=== PATIENT | male | born 1970 | race Caucasian/White ===

== ENCOUNTER 2024-05-16 09:16 | Inpatient (IN) | payer OTHER ==
[~2024-05-16] VITALS: Ht 175.3 cm; Wt 93.2 kg
--- NOTE | 2024-05-16 09:46 | ED.PDOC ---
History of Present Illness HPI Comments This 53-year-old male with a past medical history significant diabetes mellitus and hypertension presents to emergency room secondary to day history of word- finding difficulty and left-sided weakness. The mother she was last known well time was Friday evening. Today is Friday. He has no other complaints such as headaches convincing, chest pain, shortness of breath. The patient has difficulty finding worsening answer questions but not appropriately. He denies modifying factors. Denies pain. Fourteen systems reviewed and negative except as mentioned above Chief Complaint: Stroke Time Seen by MD: 09:44 Allergies: Coded Allergies: NO KNOWN ALLERGIES (Unverified , 05/16/24) Past Medical History PAST MEDICAL HISTORY: DM, HTN Surgical History: Denies all surgeries Constitutional: denies: chills, diaphoresis, fatigue, fever, malaise, sweats, weakness, others EENTM: denies: blurred vision, double vision, nose bleeding, nose congestion, nose pain, photophobia, tearing, throat pain, throat swelling, voice changes, others Cardiovascular: denies: chest pain, diaphoresis, Dyspnea on exertion, edema, palpitations, PND, syncope, others Gastrointestinal: denies: abdomen distended, abdominal pain, blood streaked bowels, constipated, diarrhea, dysphagia, hematemesis, melena, nausea, poor appetite, vomiting, others Genitourinary: denies: burning, dysuria, frequency Neurological: reports: left sided numbness, speech problems, weakness; denies: pre-existing deficit Musculoskeletal: denies: back pain, joint swelling, muscle pain, muscle stiffness Integumetry: denies: bruises, laceration, lesions, rash, wounds Psychiatric: denies: anxiety, depression Physical Exam General Appearance: Moderate Distress HEENT: Other (Left-sided facial weakness.) Neck: Full Range of Motion, Supple Respiratory: Lungs Clear, No Accessory Muscle Use, No Respiratory Distress Cardiovascular: Regular Rate/Rhythm Breast Exam: Deferred Gastrointestinal: Non Tender, Soft Genitalia: Deferred Pelvic: Deferred Rectal: Deferred Extremities: Normal inspection, Normal range of motion, Non-tender Neurologic: Aphasia, Facial Droop, Normal Affect, Normal Mood, Speech Problem Cerebellar Function: NOT DONE Reflexes: NOT DONE Skin: Normal Color, Warm Lymphatic: NOT DONE Was a procedure done? Was a procedure done?: No Differential Dx Considerations may include: CVA, TIA, wiggins's palsy X-Ray, Labs, Meds, VS Vital Signs Date Time Temp Pulse Resp B/P (MAP) Pulse Ox O2 Delivery O2 Flow Rate FiO2 05/16/24 10:58 59 05/16/24 09:16 98.5 85 17 183/96 (125) 96 Lab Test 05/16/24 11:19 05/16/24 10:15 Range/Units Troponin I High Sensitivity < 3 L < 3 L </=54 ng/L White Blood Count 9.5 4.4-10.8 10^3/uL Red Blood Count 5.54 4.5-5.90 10^6/uL Hemoglobin 17.4 13.5-17.5 g/dL Hematocrit 50.6 41.0-53.0 % Mean Corpuscular Volume 91.3 80.0-100.0 fL Mean Corpuscular Hemoglobin 31.3 28.0-32.0 pg Mean Corpuscular Hemoglobin Concent 34.3 32.0-36.0 g/dL Red Cell Distribution Width 13.9 11.8-14.3 % Platelet Count 211 140-450 10^3/uL Mean Platelet Volume 7.5 6.9-10.8 fL Neutrophils (%) (Auto) 70.1 37.0-80.0 % Lymphocytes (%) (Auto) 21.9 10.0-50.0 % Monocytes (%) (Auto) 6.9 0.0-12.0 % Eosinophils (%) (Auto) 0.5 0.0-7.0 % Basophils (%) (Auto) 0.6 0.0-2.0 % Neutrophils # (Auto) 6.6 1.6-8.6 10 ^3/uL Lymphocytes # (Auto) 2.1 0.4-5.4 10 ^3/uL Monocytes # (Auto) 0.6 0-1.3 10 ^3/uL Eosinophils # (Auto) 0.1 0-0.8 10 ^3/uL Basophils # (Auto) 0.1 0-0.2 10 ^3/uL Nucleated Red Blood Cells 0.1 % Prothrombin Time 11.0 9.3-11.8 sec Prothrombin Time INR 1.04 0.9-1.15 Activated Partial Thromboplast Time 28.6 24.5-34.5 SEC Sodium Level 143 136-145 mmol/L Potassium Level 3.1 L 3.5-5.1 mmol/L Chloride Level 105 98-107 mmol/L Carbon Dioxide Level 28 20-31 mmol/L Anion Gap 10 5-15 Blood Urea Nitrogen 16 9-23 mg/dL Creatinine 0.94 0.700-1.30 mg/dL Glomerular Filtration Rate Calc 96 >90 mL/min BUN/Creatinine Ratio 17.0 10.0-20.0 Serum Glucose 172 H 74-106 mg/dL Calcium Level 9.7 8.7-10.4 mg/dL Magnesium Level 2.2 1.6-2.6 mg/dL Total Bilirubin 0.8 0.2-1.0 mg/dL Aspartate Amino Transferase (AST) 13 13-40 U/L Alanine Aminotransferase (ALT) 18 7-40 U/L Alkaline Phosphatase 96 46-116 U/L B-Type Natriuretic Peptide 16.46 0-100 pg/mL Total Protein 7.1 5.7-8.2 g/dL Albumin 4.4 3.2-4.8 g/dL [place] [id number] Ph: [phone] DIAGNOSTIC IMAGING Diagnostic Imaging Report : [id number] Signed PATIENT: BOSSMAN RM ACCT: [id number] UNIT: [id number] : 1970 LOC: ER ROOM / BED: / AGE / SEX: 53 / M ADM STATUS: REG ER SERVICE [id number] ORDERING PHYSICIAN: GIGI MICHELE MD PROCEDURE(s): CTH - STROKE CTH REASON: r/o stroke ORDER NUMBER(s): [id number], ACCESSION NUMBER(s): [id number] CT STROKE CTH INDICATION: r/o stroke EXAM DATE: 05/16/2024 09:43 AM COMPARISON: None RADIATION DOSE: CTDIvol: 56.1 mGy, DLP: 899.37 mGy*cm PROCEDURE: CT scans of the head were obtained from the vertex to the skull base. Sagittal and coronal reconstructions were provided. All CT scans at this medical facility are performed using dose modulation techniques as appropriate to a performed exam including the following: Automated exposure control was utilized; adjustment of the MA and/or KV according to patient size; and use of iterative reconstruction technique. FINDINGS: Hypodensity in the left frontal, parietal and right parietal lobe. There is sulcal and ventricular prominence. The brain otherwise shows normal morphology and rosas-white matter differentiation, without intracranial hemorrhage, extra-axial fluid collection, mass effect or acute large vessel infarct. The ventricles are normal in size. The basal cisterns are patent. The skull and visible facial bones are intact. The paranasal sinuses, mastoid air cells and middle ear cavities are well-aerated. The soft tissues of the scalp are unremarkable. IMPRESSION: Hypodensity in the left frontal, parietal and right parietal lobe likely due to prior infarct. Brain MRI may be considered for further evaluation. No acute intracranial abnormality. ATED BY: JAY DENNIS MD DICTATED DATE/TIME: 05/16/241002 SIGNED BY: JAY DENNIS MD SIGNED DATE/TIME: 05/16/241002 CC: [place] [address] Ph: [phone] DIAGNOSTIC IMAGING Diagnostic Imaging Report : [id number] Signed PATIENT: BOSSMAN RM ACCT: [id number] UNIT: [id number] : 1970 LOC: ER ROOM / BED: / AGE / SEX: 53 / M ADM STATUS: REG ER SERVICE 8 ORDERING PHYSICIAN: GIGI MICHEEL MD PROCEDURE(s): CXR1 - CHEST XRAY 1 VIEW REASON: stroke ORDER NUMBER(s): [id number], ACCESSION NUMBER(s): [id number] XY CHEST XRAY 1 VIEW, HISTORY: stroke COMPARISON: None None TECHNICAL DATA: 1 view of the chest was obtained. FINDINGS: Lines and tubes: None Cardiomediastinal silhouette: normal Pulmonary vasculature: normal Lung expansion: normal Lung airspace: normal Lung interstitium: normal Pleura: normal Pneumothorax: no Bones: Unremarkable Other: no IMPRESSION: No acute intrathoracic abnormality. ATED BY: JAY DENNIS MD DICTATED DATE/TIME: 05/16/241007 SIGNED BY: JAY DENNIS MD SIGNED DATE/TIME: 05/16/241007 CC: X-Ray, Labs, Meds, VS Comment This 53-year-old male presents to emergency room secondary to a 2 day history of left-sided weakness and aphasia. The patient has difficulty finding words and answers inappropriately. However, when asked to provide answers by nodding yes or now, he is able to answer appropriately. Unfortunately, the patient has had the window for acute intervention. The patient was started on the stroke pathway. Time of 1ST Reevaluation: 10:14 Reevaluation 1ST: Unchanged Time of 2ND Reevaluation: 12:10 Reevaluation 3RD: Unchanged Patient Education/Counseling: Diagnosis, Treatment Family Education/Counseling: No Family Present Departure 1 Departure Time of Disposition: 12:11 Impression: Primary Impression: Aphasia Additional Impression: Weakness Disposition: ADMITTED INPATIENT Admit to: Tele Condition: Serious Critical Care Note Critical Care Time?: Yes (35 min-critical care time only) Stability Stability form required: No Heart Score Heart Score: Heart Score Response (Comments) Value History N/A 0 EKG N/A 0 Age N/A 0 Risk Factors N/A 0 Troponin N/A 0 Total 0 I personally scribed for GIGI MICHELE MD ([email or web address]) on 05/16/24 at 10:11. Electronically submitted by Omero Tinajero ([email or web address]). I personally scribed for GIGI MICHELE MD ([email or web address]) on 05/16/24 at 12:09. Electronically submitted by Omero Tinajero ([email or web address]). GIGI MICHELE MD May 16, 2024 09:46
--- NOTE | 2024-05-16 10:06 | DVH ---
CT STROKE CTH INDICATION: r/o stroke EXAM DATE: 05/16/2024 09:43 AM COMPARISON: None RADIATION DOSE: CTDIvol: 56.1 mGy, DLP: 899.37 mGy*cm PROCEDURE: CT scans of the head were obtained from the vertex to the skull base. Sagittal and coronal reconstructions were provided. All CT scans at this medical facility are performed using dose modulation techniques as appropriate t o a performed exam including the following: Automated exposure control was utilized; adjustment of th e MA and/or KV according to patient size; and use of iterative reconstruction technique. FINDINGS: Hypodensity in the left frontal, parietal and right parietal lobe. There is sulcal and vent ricular prominence. The brain otherwise shows normal morphology and rosas-white matter differentiation , without intracranial hemorrhage, extra-axial fluid collection, mass effect or acute large vessel in farct. The ventricles are normal in size. The basal cisterns are patent. The skull and visible facial bones are intact. The paranasal sinuses, mastoid air cells and middle ear cavities are well-aerated. The soft tissues of the scalp are unremarkable. IMPRESSION: Hypodensity in the left frontal, parietal and right parietal lobe likely due to prior infarct. Brain MRI may be considered for further evaluation. No acute intracranial abnormality.
[2024-05-16 10:10] VITALS: PULSE 76; RESP 14; O2SAT 93
--- NOTE | 2024-05-16 10:10 | DVH ---
XY CHEST XRAY 1 VIEW, HISTORY: stroke COMPARISON: None None TECHNICAL DATA: 1 view of the chest was obtained. FINDINGS: Lines and tubes: None Cardiomediastinal silhouette: normal Pulmonary vasculature: normal Lung expansion: normal Lung airspace: normal Lung interstitium: normal Pleura: normal Pneumothorax: no Bones: Unremarkable Other: no IMPRESSION: No acute intrathoracic abnormality.
[2024-05-16 10:38] LABS: Basophils # (auto) 0.1 10 ^3/uL (0-0.2); Basophils % (auto) 0.6 % (0.0-2.0); Eosinophils # (auto) 0.1 10 ^3/uL (0-0.8); Eosinophils % (auto) 0.5 % (0.0-7.0); Hematocrit 50.6 % (41.0-53.0); Hemoglobin 17.4 g/dL (13.5-17.5); Lymphocytes # (auto) 2.1 10 ^3/uL (0.4-5.4); Lymphocytes % (auto) 21.9 % (10.0-50.0); Mean Corpuscular Hemoglobin 31.3 pg (28.0-32.0); Mean Corpuscular Hgb Conc. 34.3 g/dL (32.0-36.0); Mean Corpuscular Volume 91.3 fL (80.0-100.0); Monocytes # (auto) 0.6 10 ^3/uL (0-1.3); Monocytes % (auto) 6.9 % (0.0-12.0); Neutrophils # (auto) 6.6 10 ^3/uL (1.6-8.6); Neutrophils % (auto) 70.1 % (37.0-80.0); Nucleated Red Blood Cells % 0.1 %; Platelet Count (auto) 211 10^3/uL (140-450); Red Blood Cells 5.54 10^6/uL (4.5-5.90); Red Cell Distribution Width 13.9 % (11.8-14.3); White Blood Cell 9.5 10^3/uL (4.4-10.8)
[2024-05-16 10:57] LABS: INR 1.04 (0.9-1.15); Partial Thromboplastin Time 28.6 SEC (24.5-34.5)
[2024-05-16 10:58] LABS: Alanine Aminotransferase 18 U/L (7-40); Albumin 4.4 g/dL (3.2-4.8); Alkaline Phosphatase 96 U/L (46-116); Anion Gap 10 (5-15); Aspartate Aminotransferase 13 U/L (13-40); Bilirubin, Total 0.8 mg/dL (0.2-1.0); Blood Urea Nitrogen 16 mg/dL (9-23); Calcium 9.7 mg/dL (8.7-10.4); Carbon Dioxide 28 mmol/L (20-31); Chloride 105 mmol/L (98-107); Magnesium 2.2 mg/dL (1.6-2.6); Sodium 143 mmol/L (136-145); Total Protein 7.1 g/dL (5.7-8.2)
[2024-05-16 11:14] LABS: Glucose 172 mg/dL (74-106); Potassium 3.1 mmol/L (3.5-5.1)
--- NOTE | 2024-05-16 13:24 | DVH ---
Carotid Duplex Clinical History: new onset aphasia Comparison: None Technique: Duplex Doppler evaluation of the extracranial carotid and vertebral arteries including color Doppler and spectral/pulsed waveform analysis was performed. Findings: RIGHT SIDE: The peak systolic velocities are 68 cm/s in the CCA, 59-68 cm/s in the ICA. The ICA/CCA ratio is 1.0 . The external carotid artery is patent with peak systolic velocity of 97 cm/s proximally. There is appropriate antegrade flow in the right vertebral artery. LEFT SIDE: The peak systolic velocities are 91 cm/s in the CCA, 61-80 cm/s in the ICA. The ICA/CCA ratio is 0.9 . The external carotid artery is patent with peak systolic velocity of 109 cm/s proximally. There is appropriate antegrade flow in the left vertebral artery. IMPRESSION: 1. No hemodynamically significant stenosis noted in the right carotid system. 2. No hemodynamically significant stenosis noted in the left carotid system. Reference: Radiology 2003; 229:340-346 Normal ICA PSV is <125 cm/sec and no plaque or intimal thickening is visible sonographically additional criteria include ICA/CCA PSV ratio <2.0 and ICA EDV <40 cm/sec <50% ICA stenosis ICA PSV is <125 cm/sec and plaque or intimal thickening is visible sonographically additional criteria include ICA/CCA PSV ratio <2.0 and ICA EDV <40 cm/sec 50-69% ICA stenosis ICA PSV is 125-230 cm/sec and plaque is visible sonographically additional criteria include ICA/CCA PSV ratio of 2.0-4.0 and ICA EDV of 40-100 cm/sec 70% ICA stenosis but less than near occlusion ICA PSV is >230 cm/sec and visible plaque and luminal narrowing are seen at rosas-scale and color Dopp ler ultrasound (the higher the Doppler parameters lie above the threshold of 230 cm/sec, the greater the likelihood of severe disease) additional criteria include ICA/CCA PSV ratio >4 and ICA EDV >100 cm/sec
[2024-05-16] MEDS ORDERED: MORPHINE SULFATE INJ 2 MG/ml SYRG IV PRN (18:45)
--- NOTE | 2024-05-16 18:45 | DVHHP2 ---
History of Present Illness History of Present Illness This 53-year-old male with PMHx T2DM and hypertension presents to ER w c/o word- finding difficulty and left-sided weakness x 1 days. The mother she was last known well time was Friday evening. Today is Friday, he started having symptoms on friday morning. He has no other complaints such as headaches convincing, chest pain, shortness of breath. The patient has difficulty finding words to answer questions He denies modifying factors. Denies pain. able to clearly answer yes/no questions. denies chest pain, abdominal pain, N/V, D/C, upper respiratory symptoms, incontinence, loss of bladder or bowel,. Review of Systems Review of Systems As HPI Allergies: Coded Allergies: NO KNOWN ALLERGIES (Unverified , 05/16/24) Exam Vital Signs Vital Signs Date Time Temp Pulse Resp B/P (MAP) Pulse Ox O2 Delivery O2 Flow Rate FiO2 05/16/24 11:00 59 17 141/78 (99) 94 05/16/24 10:10 Room Air* 0 21 05/16/24 09:57 98.5 98.5 Exam GEN: Healthy appearing, well-developed, mild distress HEENT: NC/AT; MMM. CV: RRR, no m/r/g. LUNGS: CTAB, no w/r/c. ABD: Soft, NT/ND, NBS, no masses or organomegaly. EXT: skin Warm, well perfused. no rashes. No clubbing, cyanosis, or edema. NEURO: Ambulating with no limitations. Has aphasia, unable to find words. Also unable to write his name anymore. no visual field deficits, has facial droop on the right, otherwise cranial nerve 2-12 intact. Sensation and motor function intact in all extremities. He appears anxious given his symptoms appropriately Labs/Xrays Labs Test 05/16/24 13:16 05/16/24 10:15 Range/Units Troponin I High Sensitivity < 3 L </=54 ng/L White Blood Count 9.5 4.4-10.8 10^3/uL Red Blood Count 5.54 4.5-5.90 10^6/uL Hemoglobin 17.4 13.5-17.5 g/dL Hematocrit 50.6 41.0-53.0 % Mean Corpuscular Volume 91.3 80.0-100.0 fL Mean Corpuscular Hemoglobin 31.3 28.0-32.0 pg Mean Corpuscular Hemoglobin Concent 34.3 32.0-36.0 g/dL Red Cell Distribution Width 13.9 11.8-14.3 % Platelet Count 211 140-450 10^3/uL Mean Platelet Volume 7.5 6.9-10.8 fL Neutrophils (%) (Auto) 70.1 37.0-80.0 % Lymphocytes (%) (Auto) 21.9 10.0-50.0 % Monocytes (%) (Auto) 6.9 0.0-12.0 % Eosinophils (%) (Auto) 0.5 0.0-7.0 % Basophils (%) (Auto) 0.6 0.0-2.0 % Neutrophils # (Auto) 6.6 1.6-8.6 10 ^3/uL Lymphocytes # (Auto) 2.1 0.4-5.4 10 ^3/uL Monocytes # (Auto) 0.6 0-1.3 10 ^3/uL Eosinophils # (Auto) 0.1 0-0.8 10 ^3/uL Basophils # (Auto) 0.1 0-0.2 10 ^3/uL Nucleated Red Blood Cells 0.1 % Prothrombin Time 11.0 9.3-11.8 sec Prothrombin Time INR 1.04 0.9-1.15 Activated Partial Thromboplast Time 28.6 24.5-34.5 SEC Sodium Level 143 136-145 mmol/L Potassium Level 3.1 L 3.5-5.1 mmol/L Chloride Level 105 98-107 mmol/L Carbon Dioxide Level 28 20-31 mmol/L Anion Gap 10 5-15 Blood Urea Nitrogen 16 9-23 mg/dL Creatinine 0.94 0.700-1.30 mg/dL Glomerular Filtration Rate Calc 96 >90 mL/min BUN/Creatinine Ratio 17.0 10.0-20.0 Serum Glucose 172 H 74-106 mg/dL Calcium Level 9.7 8.7-10.4 mg/dL Magnesium Level 2.2 1.6-2.6 mg/dL Total Bilirubin 0.8 0.2-1.0 mg/dL Aspartate Amino Transferase (AST) 13 13-40 U/L Alanine Aminotransferase (ALT) 18 7-40 U/L Alkaline Phosphatase 96 46-116 U/L B-Type Natriuretic Peptide 16.46 0-100 pg/mL Total Protein 7.1 5.7-8.2 g/dL Albumin 4.4 3.2-4.8 g/dL Assessment/Plan Assessment/Plan #Subacute CVA, > 24 hour since symptom onset; CT head negative for intracranial bleed, carotid ultrasound bilateral negative for blockage,- pending MRI, pending neuro consult, we will start DAPT , HI SI. Order echo, order PT and BAD CLOTH CHECKER eval., NPO until BAD CLOTH CHECKER. # hypokalemia - replete as needed and recheck a.m. BMP #Type 2 diabetes mild SSI, a.c. HS Accu-Cheks #Hypertension- patient is beyond time range for permissive hypertension, we will start blood pressure control now goal < 170/90. Use scheduled and p.r.n. antihypertensives Diet NPO GI prophylaxis Pepcid 20 daily DVT prophylaxis Lovenox 40 subQ Med tele Full code Plan discussed with: Patient My Orders Orders - PETE CROW MD Procedure Category Date Status Time Admit ADMIT 05/16/24 Verified 18:33 Code Status CODE 05/16/24 Verified 18:33 Ondansetron Hcl PHA 05/16/24 Verified (Zofran) 18:45 Enoxaparin Sodium PHA 05/17/24 Verified (Lovenox) 10:00 Complete Blood Count LAB 05/17/24 Verified 04:00 Comprehensive LAB 05/17/24 Verified Metabolic Panel 04:00 Npo (Nothing By DIET 05/17/24 Verified Mouth) Diet Breakfast Bedrest With Bathroom JEN 05/16/24 Verified Privileg 18:33 Morphine Sulfate PHA 05/16/24 Verified Injection 18:45 Date of Service: May 16, 2024 Billing Provider: PETE CROW MD Common Visit Codes: [id number] INP/OBS CARE (HIGH) PETE CROW MD May 16, 2024 18:45
[2024-05-16 19:40] VITALS: PULSE 59; RESP 16; O2SAT 92
[2024-05-16] MEDS: CLOPIDOGREL BISULFATE 75 MG TAB PO ONE (20:09)
[2024-05-16] MEDS: ATORVASTATIN 20 MG TAB PO ONE (20:09)
[2024-05-16] MEDS: ASPirin 81 mg TAB PO ONE (20:10)
[2024-05-17] MEDS: ONDANSETRON HCL 4 MG/2 ML VIAL IV PRN (01:33)
[2024-05-17 05:45] LABS: Basophils # (auto) 0.1 10 ^3/uL (0-0.2); Eosinophils # (auto) 0.1 10 ^3/uL (0-0.8)
[2024-05-17 05:47] LABS: Basophils % (auto) 0.9 % (0.0-2.0); Hematocrit 49.4 % (41.0-53.0); Hemoglobin 17.4 g/dL (13.5-17.5); Lymphocytes # (auto) 2.5 10 ^3/uL (0.4-5.4); Lymphocytes % (auto) 23.3 % (10.0-50.0); Mean Corpuscular Hemoglobin 32.3 pg (28.0-32.0); Mean Corpuscular Hgb Conc. 35.2 g/dL (32.0-36.0); Mean Corpuscular Volume 91.7 fL (80.0-100.0); Monocytes % (auto) 9.4 % (0.0-12.0); Neutrophils % (auto) 65.4 % (37.0-80.0); Nucleated Red Blood Cells % 0.2 %; Platelet Count (auto) 192 10^3/uL (140-450); Red Blood Cells 5.39 10^6/uL (4.5-5.90); White Blood Cell 10.7 10^3/uL (4.4-10.8)
[2024-05-17 06:05] LABS: Alanine Aminotransferase 15 U/L (7-40); Albumin 4.3 g/dL (3.2-4.8); Alkaline Phosphatase 90 U/L (46-116); Anion Gap 10 (5-15); BUN/Creatinine Ratio 21.1 (10.0-20.0); Blood Urea Nitrogen 20 mg/dL (9-23); Calcium 9.9 mg/dL (8.7-10.4); Carbon Dioxide 28 mmol/L (20-31); Chloride 105 mmol/L (98-107); Sodium 143 mmol/L (136-145)
[2024-05-17 06:24] LABS: Aspartate Aminotransferase 8 U/L (13-40); Glucose 160 mg/dL (74-106); Potassium 3.1 mmol/L (3.5-5.1)
[2024-05-17 07:30] VITALS: PULSE 60; RESP 18; O2SAT 92
--- NOTE | 2024-05-17 07:58 | DVH ---
EXAMINATION: MRI BRAIN HEAD WO CONTRAST INDICATION: aloc, aphasia x 2 days COMPARISON: None TECHNIQUE: Multiplanar, multisequence magnetic resonance imaging of the brain was performed without the use of i ntravenous contrast. FINDINGS: Left MCA territory acute infarct. There is periventricular/deep white matter T2/FLAIR hyperintensity is nonspecific, but most commonly associated with chronic microvascular disease. The ventricles and sulci are normal in size for age. Clear basal cisterns. Flow voids in the major intracranial vessels are maintained. No abnormality of the orbits. Paranasal sinuses and mastoid air cells are clear. No abnormality of the visualized osseous structures and extracranial soft tissues. IMPRESSION: Left MCA territory acute infarct.
[2024-05-17 09:41] LABS: Cholesterol 200 mg/dL (< 200)
[2024-05-17 09:43] LABS: HDL Cholesterol 37 mg/dL (40-59); LDL Cholesterol 140 mg/dL (< 100); Triglycerides 166 mg/dL (< 150)
[2024-05-17] MEDS: POTASSIUM CHL 20MEQ/100ML 100 ML IV SCH (10:53)
[2024-05-17] MEDS: ASPirin 81 mg TAB PO SCH (10:54)
[2024-05-17] MEDS: ENOXAPARIN SOD 40 MG/0.4 ML SYRINGE SC SCH (10:54)
[2024-05-17] MEDS: CLOPIDOGREL BISULFATE 75 MG TAB PO SCH (10:55)
[2024-05-17] MEDS ORDERED: DEXTROSE (50%) 50ML SYRG IV PRN (12:15)
[2024-05-17] MEDS ORDERED: hydrALAZINE HCL 20 MG/ML VL IV PRN (12:30)
[2024-05-17] MEDS: amLODIPine BESYLATE 5 MG TAB PO ONE (13:06)
--- NOTE | 2024-05-17 15:22 | DVHSR ---
APPROVED REPORT EXAM: Two-dimensional and M-mode echocardiogram with Doppler and color Doppler. Blood Pressure: 151/41 mmHg INDICATION Stroke RISK FACTORS Height: 5'9", Weight: 206 DIMENSIONS LVDd4.4 (3.8-5.7cm)LA (2D)3.2 (1.9-4.0cm)Aortic Root3.4 (2.0-3.7cm) LVDs2.6 (2.5-4.0cm)LA (MM) (1.9-4.0cm)Aortic Cusp Exc2.0 (1.5-2.0cm) EF (%) 70.0 (55-70%)Rt. Atrium2.8 (1.9-4.0cm)Asc. Aorta cm IVSd1.2 (0.7-1.1cm)RV (D) (1.8-2.4cm) PWd1.1 (0.7-1.1cm) Mitral Valve MitralMitral Stenosis E wave0.79m/sMV Mean GR.mmHg A wave0.90m/sMV Peak GR.mmHg E/A ratio0.92D MVAcm2 DECEL [id number] 1/2 [place] Aortic Valve Aortic ValveAortic Stenosis V11.08m/Simran Mean GR.4mmHg V21.61m/Simran Peak GR.10mmHg LVOT Diameter2.1 (1.8-2.4cm)Doppler AVA2.32cm2 Pulmonic Valve V21.17m/s Other Information Technically limited study due to body habitus. Conclusion Normal left ventricular size and dimension. Hyperdynamic left ventricular estimated ejection fractio n 65%. There is a grade 1 diastolic dysfunction. Normal right ventricular size and dimension. Normal right ventricular systolic function. Slightly i ncreased right ventricular systolic [id number] mm of mercury Normal biatrial size and dimension. Normal aortic valve structure and function. Normal mitral valve structure and function. Normal tricuspid valve structure and function. The pulmonary valve is grossly normal. No pericardial effusion.
[2024-05-17] MEDS: ACCU-CHEK COMFORT CURVE STRIP VI SCH (18:00)
[2024-05-17] MEDS: InsuLIN REG 1unit/0.01ml Soln (100units/ml) SC SCH (18:00)
--- NOTE | 2024-05-17 19:07 | DVHPNRES ---
Progress Note Date Seen: May 17, 2024 Resident Creating Document: LETICIA ROSALES JAMES Has the PT tested + for MRSA If YES, has PT been informed?: No Medical Necessity Reason Pt with a Central, PICC or Fol: No Subjective Review of Systems This 53-year-old male with a past medical history of type 2 diabetes mellitus (T2DM) and hypertension presents to the ER with complaints of word-finding difficulty and left-sided weakness for one day. His last known well time was Friday, according to his mother. Today is Friday, and he started having symptoms on Friday morning. He has no other complaints such as headaches, chest pain, or shortness of breath. The patient has difficulty finding words to answer questions but can clearly answer yes/no questions. He denies any modifying factors, pain, chest pain, abdominal pain, nausea, vomiting, diarrhea, constipation, upper respiratory symptoms, incontinence, or loss of bladder or bowel control. Today, patient seen and examined at the bedside. Patient is still not able to speak. Patient reports: No new complaints, Feels better Changes from previous H/P or p: Changes Objective vital signs Vital Sign Date Time Temp Pulse Resp B/P (MAP) Pulse Ox O2 Delivery O2 Flow Rate FiO2 05/17/24 15:41 111 05/17/24 14:32 18 146/78 (100) 93 05/17/24 07:30 Room Air* 0 21 05/16/24 09:57 98.5 98.5 medications Current Medications Medications Dose Ordered Sig/Joanie Route Start Time Stop Time Status Last Admin Dose Admin Ondansetron HCl 4 mg Q4HP PRN IV 05/16/24 18:45 05/17/24 01:33 4 MG Enoxaparin Sodium 40 mg DAILY SC 05/17/24 10:00 05/17/24 10:54 40 MG Morphine Sulfate 2 mg Q4HPRN PRN IV 05/16/24 18:45 Aspirin 81 mg DAILY PO 05/17/24 10:00 05/17/24 10:54 81 MG Clopidogrel Bisulfate 75 mg DAILY PO 05/17/24 10:00 05/17/24 10:55 75 MG Atorvastatin Calcium 40 mg HS PO 05/17/24 22:00 Diagnostic Test (Pha) 1 strip Q6HR 05/17/24 18:00 05/17/24 18:00 1 STRIP Insulin Human Regular Q6HR SC 05/17/24 18:00 Dextrose 50 ml UD PRN IV 05/17/24 12:15 Amlodipine Besylate 10 mg DAILY PO 05/18/24 10:00 Hydralazine HCl 10 mg Q6HP PRN IV 05/17/24 12:30 Examination General Appearance: Alert, Oriented X3, Cooperative, No acute distress HEENT: Right-sided facial droop numbness, central type of 7 cranial nerve palsy Respiratory: Clear to auscultation, Normal air movement Cardiovascular: Regular rate, Normal S1, Normal S2, No murmurs, no chest wall tenderness Abdominal: Normal bowel sounds, Soft, No tenderness, No hepatospenomegaly, No masses Skin: No rashes, No breakdown, No significant lesion Neuro: Patient has imbalance, power on bilateral lower limb an upper limb or 5 x 5, palsy of cranial nerve 7 on the right side and cranial nerves 12 on the right side are present. Patient has motor type aphasia, could not understand and follow commands, but could not verbalize Psych/Mental Status: Mental status NL, Mood NL laboratory and microbiology Laboratory Tests 05/17/24 05:29 Test 05/17/24 05:29 Range/Units Serum Glucose 160 H 74-106 mg/dL Labs and/or images reviewed: Labs reviewed by me, Image(s) reviewed by me Problem List/Assessment/Plan Problem List/Assessment/Plan Left-sided ischemic CVA Motor aphasia, due to ischemic CVA Head CT scan shows, hypodensity in the left frontal, parietal and right parietal lobe likely due to prior infarct Brain MRI shows left MCA territory acute infarct Carotid ultrasound, shows no hemodynamically significant carotid artery stenosis Echocardiogram shows LVEE 65%, grade 1 diastolic dysfunction Patient has motor aphasia, with involvement of cranial nerve 12 and 7 central type Aspirin 81 mg daily Atorvastatin 40 mg daily carvedilol 75 mg daily Check lipid profile Check TSH Physical therapy Hypertension Amlodipine 10 mg daily Diabetes mellitus type 2 Insulin regular according to sliding scale, mild Diabetes education given Dyslipidemia Atorvastatin 40 mg daily Vitamin-D deficiency, supplemented Vitamin B12 deficiency, supplemented Hypokalemia, repleted DIET: Swallowing evaluation performed, normal, Diabetic diet DVT PROPHYLAXIS: Lovenox 40 mg daily GI PROPHYLAXIS:: Protonix BOWEL REGIMEN: Patient has normal bowel movement, Colace as needed CODE STATUS: Goal of care discussed for more than 23 minutes with the mother of the patient, at the bedside, full code DISPOSITION: Telemetry Patient's status discussed with with the mother at the bedside and the patient. Case discussed with Dr. Bell Plan discussed with: Patient, Other (Mother, RN) My Orders My Orders Orders - LETICIA ROSALES RESDIPAULY Procedure Category Date Status Time Accucheck BD 05/17/24 Transmitted 12:11 Glucose Blood PHA 05/17/24 In Process (Accu-Chek Comfort 18:00 Insulin R (Human) PHA 05/17/24 In Process (Insulin R) 18:00 Dextrose 50% Syringe PHA 05/17/24 In Process 12:15 Amlodipine Tablet PHA 05/18/24 In Process (Norvasc Tablet) 10:00 Hydralazine Injection PHA 05/17/24 In Process (Apresoline Inject 12:30 Consistent DIET 05/18/24 Transmitted Carb(Ccho)Diabetes Breakfast Date of Service: May 17, 2024 Billing Provider: SHANNAN BELL MD Common Visit Codes: 08569-[id number] INP/OBS CARE(HIGH) Secondary Visit Codes: 61774-[id number] CARE PLAN 30 MINUTES LETICIA ROSALES RESDIENT May 17, 2024 19:07 SHANNAN BELL MD May 17, 2024 20:18
[2024-05-17 20:21] VITALS: PULSE 74; RESP 17; O2SAT 94
[2024-05-17] MEDS: ERGOCALCIFEROL 50,000 UNIT(1.25MG) CAP PO SCH (20:36)
[2024-05-17] MEDS: CYANOCOBALAMIN (B-12) 1000 MCG/1 ML VIAL SUBCUT ONE (20:36)
[2024-05-17 21:06] VITALS: PULSE 82
[2024-05-17 22:04] VITALS: BP 108/60; PULSE 74; RESP 17; TEMP 98.4; O2SAT 94
[2024-05-17] MEDS: ATORVASTATIN 20 MG TAB PO SCH (22:06)
[2024-05-18] VITALS (7 sets, daily range): BP systolic 132–168; BP diastolic 61–87; PULSE 60–90; RESP 16–18; TEMP 98–98.6; O2SAT 95–98
[2024-05-18 06:30] LABS: Anion Gap 12 (5-15); Calcium 9.7 mg/dL (8.7-10.4); Carbon Dioxide 23 mmol/L (20-31)
[2024-05-18 06:35] LABS: BUN/Creatinine Ratio 21.5 (10.0-20.0); Blood Urea Nitrogen 20 mg/dL (9-23)
[2024-05-18 06:36] LABS: Chloride 111 mmol/L (98-107); Glucose 121 mg/dL (74-106); Sodium 146 mmol/L (136-145)
[2024-05-18] MEDS ORDERED: hydrALAZINE HCL 20 MG/ML VL IV PRN (08:00)
[2024-05-18] MEDS: amLODIPine BESYLATE 5 MG TAB PO SCH (10:00)
[2024-05-18] MEDS: POTASSIUM CHL 20MEQ/100ML 100 ML IV ONE (10:00)
[2024-05-18] MEDS ORDERED: AMLO1TAB23 PO (10:32)
[2024-05-18] MEDS ORDERED: EMPA1TAB3 PO (10:32)
[2024-05-18] MEDS ORDERED: SEMA3TAB2 PO (10:32)
[2024-05-18] MEDS ORDERED: METF-372 PO (10:32)
[2024-05-18] MEDS ORDERED: GLIP5TAB21 PO (10:32)
[2024-05-18] MEDS: POTASSIUM EFFERVESENT TAB 25 MEQ PO ONE ×2 (11:00→11:57)
--- NOTE | 2024-05-18 12:10 | DVHINCON2 ---
Date of service: May 18, [address] Gaspar Reason for Consultation Stroke History of Present Illness Mr. Matos is a 53 years old right-handed gentleman with a history of hypertension, diabetes, obesity, the patient was came to the [facility] on 07/17/2023 with a chief company of order fighting difficulty and left-sided weakness. At that time, the patient is alert and fully oriented, but he has difficulty express himself, the history is obtained from his mother He notes that he had problem to express himself in the evening on 05/14/2024, but no focal weakness, because his problem persists, the patient was decided to come to the hospital medical attention. He denies headache, chest pain, altered mental status, sharp breath or other acute illness He was no history of stroke He snores sometimes only CBC, 05/16/2024: Unremarkable HGB A1c, 05/17/2024: 9.5 CMP, 05/16/2024: Unremarkable TG/HDL/LDL/HDL, 05/17/2024: 166/200/140/37 Vitamin B12, 04/2024: 457 Carotid Doppler, 05/16/2024: 1. No hemodynamically significant stenosis noted in the right carotid system. 2. No hemodynamically significant stenosis noted in the left carotid system MRI head, 05/17/2024: Left MCA territory acute infarct Past Medical History Hypertension, diabetes Past Surgical History Cancer resection Family History Hypertension, stroke Social History He has not tobacco smoke, no history of alcohol or recreational substance abuse Allergies: Coded Allergies: NO KNOWN ALLERGIES (Unverified , 05/16/24) Home Meds Reported Medications Glipizide (Glipizide) 5 Mg Tab, 2 TAB PO BID 05/18/24 Semaglutide (Rybelsus) 3 Mg Tab, 1 TAB PO DAILY 05/18/24 Amlodipine Besylate (Amlodipine Besylate) 10 Mg Tab, 1 TAB PO DAILY 05/18/24 Empagliflozin (Jardiance) 25 Mg Tab, 1 TAB PO QAM 05/18/24 Metformin Hydrochloride (Metformin Hcl) 1,000 Mg Tab, 1 TAB PO BID 05/18/24 Current Medications Current Medications Medications (Trade) Dose Ordered Sig/Joanie Route PRN Reason Start Time Stop Time Status Last Admin Atorvastatin Calcium (Lipitor) 40 mg HS PO 05/17/24 22:00 05/17/24 22:06 Diagnostic Test (Pha) (Accu-Chek Comfort Curve T) 1 strip Q6HR 05/17/24 18:00 05/18/24 05:12 Insulin Human Regular (InsuLIN R) Q6HR SC 05/17/24 18:00 05/18/24 05:14 Dextrose 50 ml UD PRN IV Blood Sugar LESS THAN 60 05/17/24 12:15 Amlodipine Besylate (Norvasc Tablet) 10 mg DAILY PO 05/18/24 10:00 Hydralazine HCl (Apresoline Injection) 10 mg Q6HP PRN IV SBP>170 05/17/24 12:30 05/18/24 07:56 DC Ergocalciferol (Vitamin D 50,000 Unit) 50,000 unit Q7D PO 05/17/24 19:00 05/17/24 20:36 Hydralazine HCl (Apresoline Injection) 10 mg Q6HP PRN IV SBP>150 05/18/24 08:00 Review of Systems As above, the other systems are negative Vital Signs Vital Signs Date Time Temp Pulse Resp B/P (MAP) Pulse Ox O2 Delivery O2 Flow Rate FiO2 05/18/24 08:40 98.0 79 17 164/75 (104) 98 98.0 05/17/24 22:04 Room Air* 0 21 Physical Exam GENERAL EXAM: General: the patient is well developed and nourished. No acute distress. HEENT: Normocephalic, neck is supple, no carotid bruits. No mass. RESPIRATORY: Normal respiratory effort with symmetrical lung expansion. Lungs clear to auscultation. CARDIOVASCULAR: Regular rate and rhythm with no murmurs. S1, S2. ABDOMEN: Soft, nontender, normal bowel sound NEUROLOGICAL: MENTAL STATUS: Awake and alert. Oriented to person, place, time and general circumstances. SPEECH, LANGUAGE, HIGHER CORTICAL FUNCTION: Expressive aphasia, he can understand spoken language CRANIAL NERVES: #2: Intact visual carson to confrontation. The optic discs were sharp. #3,4,6: Pupils are equal, round and reactive. EOMs full and conjugate. No nystagmus. #5: Facial sensation intact in all three divisions bilaterally. Mandibular strength intact. #7: Right facial weakness of lower neuron pattern #8: Hearing grossly normal to voice. #9,10: Uvula and soft palate rise in the midline. Swallow and voice are normal. #11: Trapezius and sternomastoid strength intact bilaterally. #12: Tongue midline. No fasciculations or atrophy. SENSATION: Sensation to touch and pinprick is normal. MOTOR: Normal tone in the upper and lower extremity. Normal muscle bulk. No fas ciculations. No abnormal movements or posturing. Muscle strength of the major groups in the extremities is 5/5 except 4-5/5 in the right upper extremity REFLEXES: Deep tendon reflexes are symmetrical. No pathological reflexes. CEREBELLAR/COORDINATION: Finger to nose is normal bilaterally. GAIT/STATION: deferred. Labs/Diagnostic Data Labs Test 05/18/24 05:10 05/18/24 05:09 05/17/24 05:29 05/16/24 13:16 Range/Units POC Glucose 148 H 70-106 mg/dl Sodium Level 146 H 136-145 mmol/L Potassium Level 3.0 L 3.5-5.1 mmol/L Chloride Level 111 H 98-107 mmol/L Carbon Dioxide Level 23 20-31 mmol/L Anion Gap 12 5-15 Blood Urea Nitrogen 20 9-23 mg/dL Creatinine 0.93 0.700-1.30 mg/dL Glomerular Filtration Rate Calc 98 >90 mL/min BUN/Creatinine Ratio 21.5 H 10.0-20.0 Serum Glucose 121 H 74-106 mg/dL Calcium Level 9.7 8.7-10.4 mg/dL Magnesium Level 2.4 1.6-2.6 mg/dL White Blood Count 10.7 4.4-10.8 10^3/uL Red Blood Count 5.39 4.5-5.90 10^6/uL Hemoglobin 17.4 13.5-17.5 g/dL Hematocrit 49.4 41.0-53.0 % Mean Corpuscular Volume 91.7 80.0-100.0 fL Mean Corpuscular Hemoglobin 32.3 H 28.0-32.0 pg Mean Corpuscular Hemoglobin Concent 35.2 32.0-36.0 g/dL Red Cell Distribution Width 14.0 11.8-14.3 % Platelet Count 192 140-450 10^3/uL Mean Platelet Volume 7.3 6.9-10.8 fL Neutrophils (%) (Auto) 65.4 37.0-80.0 % Lymphocytes (%) (Auto) 23.3 10.0-50.0 % Monocytes (%) (Auto) 9.4 0.0-12.0 % Eosinophils (%) (Auto) 1.0 0.0-7.0 % Basophils (%) (Auto) 0.9 0.0-2.0 % Neutrophils # (Auto) 7.0 1.6-8.6 10 ^3/uL Lymphocytes # (Auto) 2.5 0.4-5.4 10 ^3/uL Monocytes # (Auto) 1.0 0-1.3 10 ^3/uL Eosinophils # (Auto) 0.1 0-0.8 10 ^3/uL Basophils # (Auto) 0.1 0-0.2 10 ^3/uL Nucleated Red Blood Cells 0.2 % Hemoglobin A1c 9.5 H <5.7 % A1C Total Bilirubin 1.0 0.2-1.0 mg/dL Aspartate Amino Transferase (AST) 8 L 13-40 U/L Alanine Aminotransferase (ALT) 15 7-40 U/L Alkaline Phosphatase 90 46-116 U/L Total Protein 7.0 5.7-8.2 g/dL Albumin 4.3 3.2-4.8 g/dL Triglycerides Level 166 H < 150 mg/dL Cholesterol Level 200 H < 200 mg/dL LDL Cholesterol 140 H < 100 mg/dL HDL Cholesterol 37 L 40-59 mg/dL Vitamin B12 Level 457 211-911 pg/mL Vitamin D 25-Hydroxy 32.9 30.0-100 ng/mL Troponin I High Sensitivity < 3 L </=54 ng/L Test 05/16/24 10:15 Range/Units Prothrombin Time 11.0 9.3-11.8 sec Prothrombin Time INR 1.04 0.9-1.15 Activated Partial Thromboplast Time 28.6 24.5-34.5 SEC B-Type Natriuretic Peptide 16.46 0-100 pg/mL Assessment Expressive aphasia Right facial weakness Acute stroke Plan/Recommendation Monitoring Supportive treatment Telemetry KAJAL Aspirin 81 mg daily Plavix 75 mg for 21 days Lipitor 40 mg daily DVT prophylaxis GI prophylaxis A communication board He may need long-term cardiology monitoring KAJAL comes back unremarkable Speech pathology Prognosis: Poor This medical document was created using an electronic medical record system with [employer] system. Although this document has been carefully reviewed, there may still be some phonetic and typographical errors. These areas are purely typographical due to imperfections of the software programs, and do not reflect any compromise in the patient's medical care. Plan discussed with: Patient, Other BING OSMAN MD May 18, 2024 12:10
[2024-05-18] MEDS: CLOPIDOGREL BISULFATE 75 MG TAB PO SCH (12:45)
[2024-05-18] MEDS: POTASSIUM EFFERVESENT TAB 25 MEQ GT ONE (15:30)
[2024-05-18] MEDS ORDERED: CLOP75TA70 PO (15:54)
[2024-05-18] MEDS ORDERED: ASPI-325 PO (15:54)
[2024-05-18] MEDS ORDERED: ATOR20TA50 PO (15:54)
--- NOTE | 2024-05-18 16:32 | DVHDSRES ---
Discharge Summary Date of Admission Resident Creating Document: LETICIA ROSALES May 16, 2024 at 18:33 Date of Discharge: May 18, 2024 Admitting Diagnosis Stroke, aphasia Labs/Diagnostic Data: Laboratory Results Test 05/18/24 14:32 05/18/24 05:10 05/18/24 05:09 05/17/24 05:29 Potassium Level 3.4 mmol/L (3.5-5.1) POC Glucose 148 mg/dl (70-106) Sodium Level 146 mmol/L (136-145) Chloride Level 111 mmol/L (98-107) Carbon Dioxide Level 23 mmol/L (20-31) Anion Gap 12 (5-15) Blood Urea Nitrogen 20 mg/dL (9-23) Creatinine 0.93 mg/dL (0.700-1.30) Glomerular Filtration Rate Calc 98 mL/min (>90) BUN/Creatinine Ratio 21.5 (10.0-20.0) Serum Glucose 121 mg/dL (74-106) Calcium Level 9.7 mg/dL (8.7-10.4) Magnesium Level 2.4 mg/dL (1.6-2.6) White Blood Count 10.7 10^3/uL (4.4-10.8) Red Blood Count 5.39 10^6/uL (4.5-5.90) Hemoglobin 17.4 g/dL (13.5-17.5) Hematocrit 49.4 % (41.0-53.0) Mean Corpuscular Volume 91.7 fL (80.0-100.0) Mean Corpuscular Hemoglobin 32.3 pg (28.0-32.0) Mean Corpuscular Hemoglobin Concent 35.2 g/dL (32.0-36.0) Red Cell Distribution Width 14.0 % (11.8-14.3) Platelet Count 192 10^3/uL (140-450) Mean Platelet Volume 7.3 fL (6.9-10.8) Neutrophils (%) (Auto) 65.4 % (37.0-80.0) Lymphocytes (%) (Auto) 23.3 % (10.0-50.0) Monocytes (%) (Auto) 9.4 % (0.0-12.0) Eosinophils (%) (Auto) 1.0 % (0.0-7.0) Basophils (%) (Auto) 0.9 % (0.0-2.0) Neutrophils # (Auto) 7.0 10 ^3/uL (1.6-8.6) Lymphocytes # (Auto) 2.5 10 ^3/uL (0.4-5.4) Monocytes # (Auto) 1.0 10 ^3/uL (0-1.3) Eosinophils # (Auto) 0.1 10 ^3/uL (0-0.8) Basophils # (Auto) 0.1 10 ^3/uL (0-0.2) Nucleated Red Blood Cells 0.2 % Hemoglobin A1c 9.5 % A1C (<5.7) Total Bilirubin 1.0 mg/dL (0.2-1.0) Aspartate Amino Transferase (AST) 8 U/L (13-40) Alanine Aminotransferase (ALT) 15 U/L (7-40) Alkaline Phosphatase 90 U/L (46-116) Total Protein 7.0 g/dL (5.7-8.2) Albumin 4.3 g/dL (3.2-4.8) Triglycerides Level 166 mg/dL (< 150) Cholesterol Level 200 mg/dL (< 200) LDL Cholesterol 140 mg/dL (< 100) HDL Cholesterol 37 mg/dL (40-59) Vitamin B12 Level 457 pg/mL (211-911) Vitamin D 25-Hydroxy 32.9 ng/mL (30.0-100) Test 05/16/24 13:16 05/16/24 10:15 Troponin I High Sensitivity < 3 ng/L (</=54) Prothrombin Time 11.0 sec (9.3-11.8) Prothrombin Time INR 1.04 (0.9-1.15) Activated Partial Thromboplast Time 28.6 SEC (24.5-34.5) B-Type Natriuretic Peptide 16.46 pg/mL (0-100) Other Laboratory Tests 05/18/24 14:32 05/18/24 05:09 05/17/24 05:29 Brief Hx & Hospital Course: This 53-year-old male with a past medical history of type 2 diabetes mellitus (T2DM) and hypertension presents to the ER with complaints of word-finding difficulty and left-sided weakness for one day. His last known well time was Friday evening, according to his mother. Today is Friday, and he started having symptoms on Friday morning. He has no other complaints such as headaches, chest pain, or shortness of breath. The patient has difficulty finding words to answer questions but can clearly answer yes/no questions. He denies any modifying factors, pain, chest pain, abdominal pain, nausea, vomiting, diarrhea, constipation, upper respiratory symptoms, incontinence, or loss of bladder or bowel control. On examination, the patient had motor aphasia, cranial nerve 7 and 12 palsy and imbalance. Head MRI showed left MCA territory acute infarct. The Neurology was consulted, and recommended medical therapy. And the patient was given aspirin, atorvastatin, Plavix and continued home medicine. Physiotherapy was also performed, vitamin D and vitamin B12 deficiency were supplemented, hypokalemia was repleted, and patient's home medication for the hypertension and diabetes was continued during hospitalization. Echocardiogram was performed and showed EF 65% with grade 1 diastolic dysfunction, no structural abnormalities. , the patient was feeling better, clinically and hemodynamically stable the patient was discharged. Discharge plan: Plavix 75 mg for 21 days Aspirin 85 mg daily Atorvastatin 40 mg daily Continue home medicine Follow up with the PCP within 1 week of the discharge Follow up with the discharge Clinic within 1 week of the discharge follow up with the Neurology an outpatient disorder Follow up with the speech therapy on outpatient basis Consults/Reason for consult Neurology: Stroke Operations or Procedures [place] [address] Ph: [phone] DIAGNOSTIC IMAGING Diagnostic Imaging Report : [id number] Signed PATIENT: BOSSMAN RM ACCT: [id number] UNIT: [id number] : 1970 LOC: TELE ROOM / BED: [address] [place] [address] AGE / SEX: 53 / M ADM STATUS: ADM IN SERVICE 1129 ORDERING PHYSICIAN: GIGI MICHELE MD PROCEDURE(s): MBHL - BRAIN HEAD WO CONTRAST REASON: aloc, aphasia x 2 days ORDER NUMBER(s): [id number], ACCESSION NUMBER(s): [id number] EXAMINATION: MRI BRAIN HEAD WO CONTRAST INDICATION: aloc, aphasia x 2 days COMPARISON: None TECHNIQUE: Multiplanar, multisequence magnetic resonance imaging of the brain was performed without the use of intravenous contrast. FINDINGS: Left MCA territory acute infarct. There is periventricular/deep white matter T2/FLAIR hyperintensity is nonspecific, but most commonly associated with chronic microvascular disease. The ventricles and sulci are normal in size for age. Clear basal cisterns. Flow voids in the major intracranial vessels are maintained. No abnormality of the orbits. Paranasal sinuses and mastoid air cells are clear. No abnormality of the visualized osseous structures and extracranial soft tissues. IMPRESSION: Left MCA territory acute infarct. 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, due to ischemic CVA Hypertension Diabetes mellitus type 2 Dyslipidemia Vitamin-D deficiency The vitamin B12 deficiency Hypokalemia Discharge Disposition: Home Discharge Instruct/Medications Diet: Consistent carbohydrate Activity: No Restrictions, As Tolerated Follow Up/Referral: follow up with PCP within one week after discharge follow up with Discharge Clinic within one week after discharege follw up with neurology on outpatitent basis Medications: Apsirin 81 mg dialy Plavix 75 mg for 21 days Lipitor 40mg daily continue home medication Discharge Statement: "Patient was advised to return to the ER or call 911 if any headaches, dizziness, shortness of breath, chest pain, abdominal pain, bleeding, fevers, or worsening of medical condition. Patient was counseled about treatment plan, medications, possible side effects, patientverbalized understanding. All questions were answered to the best of my ability. 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
== END 2024-05-18 19:00 | disposition home or self-care (01) | DRG 65 ==
LOC: ER 09:16 → TELE 18:33 → TELE-WESTW 05-17 21:00
PROVIDERS: ADMIT Internal Medicine; ATTEND General Practice
DX: I63.9 Cerebral infarction, unspecified (principal); G81.94 Hemiplegia, unspecified affecting left nondominant side; E87.6 Hypokalemia; I10 Essential (primary) hypertension; E11.9 Type 2 diabetes mellitus without complications; R47.01 Aphasia; E78.5 Hyperlipidemia, unspecified; E55.9 Vitamin D deficiency, unspecified; E53.8 Deficiency of other specified B group vitamins; G51.0 Bell's palsy; E66.9 Obesity, unspecified; Z82.49 Family history of ischemic heart disease and other diseases of the circulatory system; Z82.3 Family history of stroke; Z68.30 Body mass index [BMI] 30.0-30.9, adult; Z79.899 Other long term (current) drug therapy; Z79.84 Long term (current) use of oral hypoglycemic drugs
CPT/HCPCS: 36415; 70450; 70551; 71045; 80048; 80053; 80061; 82306; 82607; 82962; 83036; 83735; 83880; 84132; 84484; 85025; 85610; 85730; 93306; 93886; 97110; 97116; 97163; 97530; 99291; G0378; J1815; J2405; J3480